=== PATIENT | male | born 1985 | race Two or more races ===

== ENCOUNTER 2019-05-17 11:19 | Inpatient (IN) | payer OTHER ==
[2019-05-17] VITALS (14 sets, daily range): BP systolic 115–155; BP diastolic 74–99
[~2019-05-17] VITALS: Ht 177.8 cm; Wt 113.4 kg
[2019-05-17] MEDS ORDERED: ETOMIDATE 2 MG/ML VIAL IV ONE ×2 (11:21→12:00)
[2019-05-17] MEDS ORDERED: SUCCINYLCHOLINE CHLORIDE 20 MG/ML VIAL IV ONE ×2 (11:21→12:00)
[2019-05-17] MEDS ORDERED: NALOXONE PREFILLED SYRINGE 2 MG/2 ML SYRINGE ONE (11:28)
[2019-05-17] MEDS ORDERED: IV NS 0.9% 1,000 ML BAG IV ONE ×2 (11:30)
[2019-05-17] MEDS ORDERED: PROPOFOL 100 ML ONE ×2 (11:33→12:49)
[2019-05-17 11:37] LABS: BASOPHILS % (AUTO) 0.1 % (0.0-2.0); EOSINOPHILS % (AUTO) 0.2 % (0.0-6.0); HEMATOCRIT 49 % (39-51); LYMPHOCYTES # (AUTO) 2.2 /CMM (0.8-4.8); LYMPHOCYTES % (AUTO) 8.6 % (20.0-44.0); MEAN CORPUSCULAR HGB CONC 33 g/dl (31.0-36.0); MEAN CORPUSCULAR VOLUME 84 fL (80-96); MONOCYTES # (AUTO) 1.2 /CMM (0.1-1.30); MONOCYTES % (AUTO) 4.7 % (2.0-12.0); NEUTROPHILS # (AUTO) 22.4 /CMM (1.8-8.9); NEUTROPHILS % (AUTO) 86.4 % (43.0-81.0); PLATELET COUNT (AUTO) 305 /CMM (150-450); RED BLOOD CELL COUNT(AUTO) 5.83 MIL/uL (4.5-6.0); WHITE BLOOD COUNT (AUTO) 25.9 K/uL (4.3-11.0)
--- NOTE | 2019-05-17 11:40 | NUR ---
DR PAPPAS AT BEDSIDE FOR INTUBATION 1140 TIME OUT 1141 20MG ETOMIDATE/150MG SUX GIVEN 1142 GLIDOSCOPE INSERTED [address], POSITIVE CO2 1144 5MCG/KG/MIN RUSTAM STARTED
[2019-05-17 11:45] LABS: CARBON DIOXIDE 22 mmol/L (21-32); CHLORIDE 104 mmol/L (98-107); CREATININE 1.5 mg/dL (0.6-1.3); GLUCOSE 165 mg/dL (74-106); POTASSIUM 3.8 mmol/L (3.5-5.1); SODIUM SERUM 141 mmol/L (136-145); UREA NITROGEN, BLOOD 9 mg/dL (7-18)
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
[2019-05-17 11:51] LABS: ACETAMINOPHEN 0 ug/ml (10-30); ALANINE AMINOTRANSFERASE 39 U/L (12-78); ALCOHOL, BLOOD < 3 mg/dL (0-0); ALKALINE PHOSPHATASE 87 U/L (46-116); ASPARTATE AMINOTRANSFERASE 67 U/L (15-37); BILIRUBIN,DIRECT 0.1 mg/dL (0.0-0.2); BILIRUBIN,TOTAL 0.4 mg/dL (0.2-1.0); SALICYLATE 5.3 mg/dL (2.8-20.0); TOTAL PROTEIN, SERUM 7.4 g/dL (6.4-8.2)
--- NOTE | 2019-05-17 11:51 | NUR ---
RECTAL TEMP 99.0 DR PAPPAS AWARE.
[2019-05-17 11:54] LABS: BILIRUBIN,URINE Negative (NEGATIVE); BLOOD, URINE Large Ery/uL (NEGATIVE); COLOR,URINE Yellow (YELLOW); KETONES,URINE Negative (NEGATIVE); LEUKOCYTE ESTERASE ,URINE Negative (NEGATIVE); NITRITE, URINE Negative (NEGATIVE); PROTEIN,URINE 100 mg/dl (NEGATIVE); UGLUCOSE Negative (NEGATIVE); UROBILINOGEN,URINE 0.2 EU/dL (0.2)
--- NOTE | 2019-05-17 11:54 | NUR ---
PT TAKEN TO RADIOLOGY VIA [facility]
[2019-05-17 11:55] LABS: APPEARANCE,URINE Hazy (CLEAR)
[2019-05-17] MEDS ORDERED: PROPOFOL 100 ML IV PRN (12:00)
[2019-05-17 12:02] LABS: BACTERIA,URINE Rare /HPF (None Seen); SQUAMOUS EPITHELIAL CELL,UR Few /HPF (None Seen); URINE AMORPHOUS PHOSPHATES Few /HPF (None Seen)
--- NOTE | 2019-05-17 12:25 | NUR ---
AND BROTHER OF PT AT BEDSIDE. PER , PT FELL FROM BED AROUND 7AM AND HAD SALIVA/FOAMING FROM THE MOUTH. PT C/O BACK PAIN AT THAT TIME. WHEN ARRIVED AT HOME, PT ASKED TO LAY ON FLOOR AND SMOKE MARIJUANA FOR PAIN RELIEF. SOON AFTER PT "WENT BLUE" SO STARTED CPR WHILE KIDS CALLED 911.
[2019-05-17] MEDS ORDERED: CEFTRIAXONE 2 G in IV D5W 50 ML IV ONE (12:30)
[2019-05-17 12:33] LABS: ABG BASE EXCESS -4.8 mmol/L; ABG OXYGEN SATURATION 96.8 % (92.0-98.5); ABG PCO2 36.8 mmHg (35.0-45.0); ABG PH 7.354 (7.350-7.450); ABG PO2 99.3 mmHg (75.0-100.0); AaDO2 215.8 mmHg; MetHb 0.5 % (0.0-1.5); O2Hb 95.3 % (94.0-97.0); PEEP,BG 5 cm H2O; SITE, ABG Left Radial; VT, ABG 550 mL
--- NOTE | 2019-05-17 12:42 | NUR ---
NANCY BENSON IN DEPT SPEAKING WITH FAMILY
[2019-05-17] MEDS ORDERED: PROPOFOL 200 MG/20 ML VIAL IV ONE (13:30)
--- NOTE | 2019-05-17 13:30 | NUR ---
DR PAPPAS AT BEDSIDE FOR LUMBAR PUNCTURE PROCEDURE
--- NOTE | 2019-05-17 14:01 | NUR ---
ICU BED 251
--- NOTE | 2019-05-17 14:28 | NUR ---
ADMIT TO ICU, REPORT GIVEN TO LES SAMPSON
--- NOTE | 2019-05-17 14:28 | NUR ---
INTRAVENOUS END TIME DOCUMENTATION: DIPRIVAN DRIP - INFUSING WHILE TRANSER TO ICU AT 60 MCS/KILO/MINUTE AT RAC PIV # 18; PORT # 1
[2019-05-17 14:47] LABS: CSF GLUCOSE 96 mg/dL (40-70); CSF PROTEIN 32.3 mg/dL (15-45)
--- NOTE | 2019-05-17 14:48 | NUR ---
[facility]
[2019-05-17] MEDS ORDERED: HYDROCODONE/APAP 5/325MG 1 EACH TABLET PO PRN (15:00)
[2019-05-17] MEDS ORDERED: ZOLPIDEM TARTRATE 5 MG TABLET PO PRN (15:00)
[2019-05-17] MEDS ORDERED: MAGNESIUM HYDROXIDE 30 ML UDC PO PRN (15:00)
--- NOTE | 2019-05-17 15:30 | NUR ---
received pt from ER, AMS, intubated for airway protection, SR, sedated on Diprivan at 100mcg, on the vent, lungs clear, no edema, f/c intact, v/s stable, no pain, restraints on, pt cleaned, changed and repositioned, family at the bedside.
[2019-05-17] MEDS: IV NS 0.9% 1,000 ML IV PRN ×2 (15:50→21:37)
[2019-05-17] MEDS: PROPOFOL 100 ML IV PRN ×5 (15:58→23:14)
--- NOTE | 2019-05-17 19:38 | NUR ---
EVENT OPERATIONS MANAGER INITIAL NOTE RECEIVED PT SEDATED ON DIPRIVAN@100MCQ, WITH E-TUBE 7.5, AC 16, TV 550, FIO2 50% PEEP 5, WITH BILAT' WRIST RESTRAIN, RENEWED, APPEARS COMFORTABLE, CLEAN AND DRY, WELL REPOSITIONED, WILL CONT' TO MONITOR.
[2019-05-18] VITALS (25 sets, daily range): BP systolic 115–164; BP diastolic 61–95
[2019-05-18] MEDS: PROPOFOL 100 ML IV PRN ×13 (00:50→22:45)
[2019-05-18] MEDS: IV NS 0.9% 1,000 ML IV PRN ×5 (02:22→22:26)
[2019-05-18 05:01] LABS: BASOPHILS % (AUTO) 0.1 % (0.0-2.0); EOSINOPHILS % (AUTO) 0.1 % (0.0-6.0); HEMATOCRIT 44 % (39-51); HEMOGLOBIN 14.6 g/dL (13.5-17.5); LYMPHOCYTES # (AUTO) 1.1 /CMM (0.8-4.8); LYMPHOCYTES % (AUTO) 7.2 % (20.0-44.0); MEAN CORPUSCULAR HGB CONC 33 g/dl (31.0-36.0); MEAN CORPUSCULAR VOLUME 83 fL (80-96); MONOCYTES # (AUTO) 1.1 /CMM (0.1-1.30); NEUTROPHILS # (AUTO) 13.4 /CMM (1.8-8.9); NEUTROPHILS % (AUTO) 85.6 % (43.0-81.0); PLATELET COUNT (AUTO) 213 /CMM (150-450); RED BLOOD CELL COUNT(AUTO) 5.28 MIL/uL (4.5-6.0); WHITE BLOOD COUNT (AUTO) 15.7 K/uL (4.3-11.0)
[2019-05-18 05:22] LABS: CREATININE 2.9 mg/dL (0.6-1.3); MAGNESIUM 2.3 mg/dL (1.8-2.4); PHOSPHORUS 2.5 mg/dL (2.5-4.9); POTASSIUM 3.8 mmol/L (3.5-5.1)
--- NOTE | 2019-05-18 06:31 | NUR ---
ENERGY TRADING ANALYST CLOSING NOTE ENDORSED PT SEDATED ON DIPRIVAN@ 65 MCQ, TITRATED STILL VERY SEDATED, WITH E-TUBE 7.5/, AC 16, TV 550, FIO2 50% PEEP 5, WITH BILAT' WRIST RESTRAIN, RENEWED, APPEARS COMFORTABLE, CLEAN AND DRY, WELL REPOSITIONED, WILL CONT' TO MONITOR.
--- NOTE | 2019-05-18 08:00 | NUR ---
received pt from night club manager, sedated on diprivan at 60mcg, SR, on the vent, lungs partially congested, no edema, NPO, OG clamped, f/c good output, v/s stable, no pain, pt turned and repositioned.
--- NOTE | 2019-05-18 09:19 | NUR ---
pt did not tolerate weaning trial, was not following commands,very agitated, tachycardic and tachypneic, back to AC mode per Dr Horton.
[2019-05-18] MEDS: CEFTRIAXONE 1 G in IV D5W 50 ML IV SCH (11:09)
[2019-05-18 12:01] LABS: APPEARANCE,URINE CLEAR (CLEAR); BILIRUBIN,URINE NEGATIVE (NEGATIVE); BLOOD, URINE NEGATIVE Ery/uL (NEGATIVE); COLOR,URINE YELLOW (YELLOW); KETONES,URINE NEGATIVE (NEGATIVE); LEUKOCYTE ESTERASE ,URINE NEGATIVE (NEGATIVE); NITRITE, URINE NEGATIVE (NEGATIVE); PROTEIN,URINE NEGATIVE (NEGATIVE); UGLUCOSE NEGATIVE (NEGATIVE); UROBILINOGEN,URINE 0.2 EU/dL (0.2)
[2019-05-18 12:18] LABS: CREATININE, URINE 62.4 MG/DL (30.0-125.0); URINE TOTAL PROTEIN 14.3 mg/dL (0-11.9)
[2019-05-18 13:03] LABS: EOSINOPHIL,URINE None Seen
--- NOTE | 2019-05-18 15:59 | NUR ---
Patient is currently in ICU, intubated and sedated. He lives at home with and children. Prior to admission, he was ambulatory and independent with adl's. His pcp is in [place]. Will maintain full ventilator support for hours and assess for weaning tomorrow per pulmonary. Addendum: 05/18/19 at 1559 by JLUIS BIRD RN Amended: Links added.
--- NOTE | 2019-05-18 16:26 | NUR ---
pt is sedated on Diprivan at 65mcg, SR, on the vent, good urine output, no BM, v/s stable, no pain, pt cleaned, changed and repositioned q2hrs, at the bedside.
[2019-05-18] MEDS: hydrALAZINE HCL IV 20 MG VIAL IV PRN (17:49)
[2019-05-18] MEDS: LORAZEPAM INJ 2 MG/ML VIAL IV PRN (18:08)
--- NOTE | 2019-05-18 19:26 | NUR ---
PLANE TENDER NOTES RECEIVED PT ON BED. SEDATED, COMFORTABLE. ET TUBE 7.03/04, ON [facility] VENT SETTING SATURATING WELL. NO RESPIRATORY DISTRESS NOTED. FLORES CATH DRAINING YELLOW URINE. IV ACCESS ON LAC G18 AND RAC G18 PATENT AND INTACT WITH NS RUNNING @ 200CC/HR AND DIP @100MCG/HR. ON BILATERAL SOFT RESTRAINS. HEAD OF BED ELEVATED. SIDE RAILS UP. CALL LIGHT WITHIN REACH. BED ALARM ON. WILL CONTINUE TO MONITOR PT CLOSELY.
[2019-05-19] VITALS (37 sets, daily range): BP systolic 122–171; BP diastolic 66–89
[2019-05-19] MEDS: LORAZEPAM INJ 2 MG/ML VIAL IV PRN ×4 (00:30→23:56)
[2019-05-19] MEDS: PROPOFOL 100 ML IV PRN ×11 (00:35→21:21)
[2019-05-19 05:08] LABS: BASOPHILS % (AUTO) 0.1 % (0.0-2.0); EOSINOPHILS % (AUTO) 0.4 % (0.0-6.0); HEMATOCRIT 44 % (39-51); HEMOGLOBIN 14.3 g/dL (13.5-17.5); LYMPHOCYTES # (AUTO) 1.6 /CMM (0.8-4.8); LYMPHOCYTES % (AUTO) 10.6 % (20.0-44.0); MEAN CORPUSCULAR HGB CONC 33 g/dl (31.0-36.0); MEAN CORPUSCULAR VOLUME 84 fL (80-96); MONOCYTES # (AUTO) 0.9 /CMM (0.1-1.30); MONOCYTES % (AUTO) 5.5 % (2.0-12.0); NEUTROPHILS % (AUTO) 83.4 % (43.0-81.0); PLATELET COUNT (AUTO) 166 /CMM (150-450); RED BLOOD CELL COUNT(AUTO) 5.24 MIL/uL (4.5-6.0); WHITE BLOOD COUNT (AUTO) 15.6 K/uL (4.3-11.0)
[2019-05-19 05:22] LABS: ALBUMIN 2.9 g/dL (3.4-5.0); BILIRUBIN,TOTAL 0.5 mg/dL (0.2-1.0); CALCIUM, SERUM 8.1 mg/dL (8.5-10.1); CREATININE 2.4 mg/dL (0.6-1.3); PHOSPHORUS 2.4 mg/dL (2.5-4.9); TOTAL PROTEIN, SERUM 6.2 g/dL (6.4-8.2)
[2019-05-19 05:54] LABS: CREATININE, URINE 133.6 MG/DL (30.0-125.0); URINE TOTAL PROTEIN 30.7 mg/dL (0-11.9)
[2019-05-19] MEDS: IV NS 0.9% 1,000 ML IV PRN ×4 (06:16→22:35)
[2019-05-19 07:13] LABS: APPEARANCE,URINE CLOUDY (CLEAR); BILIRUBIN,URINE NEGATIVE (NEGATIVE); BLOOD, URINE TRACE-INTA Ery/uL (NEGATIVE); COLOR,URINE YELLOW (YELLOW); KETONES,URINE TRACE (NEGATIVE); LEUKOCYTE ESTERASE ,URINE NEGATIVE (NEGATIVE); NITRITE, URINE NEGATIVE (NEGATIVE); PH,URINE 5.5 (5.0-8.0); PROTEIN,URINE NEGATIVE (NEGATIVE); UGLUCOSE NEGATIVE (NEGATIVE); UROBILINOGEN,URINE 0.2 EU/dL (0.2)
--- NOTE | 2019-05-19 07:14 | NUR ---
PAPER AND PRINTS RESTORER NOTES NO ACUTE CHANGES NOTED DURING THE SHIFT. NO RESPIRATORY DISTRESS NOTED. BED BATH RENDERED. PT CALM AND SEDATED THROUGHOUT THE SHIFT. ENDORSE TO THE AM NURSE FOR CONTINUITY OF CARE.
[2019-05-19 07:21] LABS: BACTERIA,URINE None seen /HPF (None Seen); SQUAMOUS EPITHELIAL CELL,UR Few /HPF (None Seen); URIC ACID CRYSTALS,URINE Moderate /HPF (None Seen); WBC,URINE NONE SEEN /HPF (0-3)
[2019-05-19 07:22] LABS: EOSINOPHIL,URINE None Seen
--- NOTE | 2019-05-19 07:30 | NUR ---
RECEIVED PT SEDATED INTUBATED ORALLY .03/04 TOLERATING VENT SETTINGS AND IWTHOUT SOB, DIFFICULTY BREATHING AND FLACC 0. SEDATED ON DIPRIVAN AND IVF PER ORDER; SEE SPREADSHEET. PATIENT WITH OGT CLAMPED; POSITIVE PLACEMENT ON AUSCULTATION. FLORES CATH TO GRAVITY WITH TEA COLORED/GREEN URINE. PATIENT IV SITES C/D/I/P. SKIN, SAFETY, ASPIRATION PRECAUTIONS IN PLACE AND WILL MONITOR
--- NOTE | 2019-05-19 07:43 | NUR ---
DR BUCK AT BEDSIDE. UPDATED ON PATIENT CONDITION AND DIFFICULTIES WITH WEANING YESTERDAY S/T SEVERE AGITATION AND NON RESPONSIVENESS TO CALMING MEASURES. PER MD START SEROQUEL 50MG THROUGH GASTRIC TUBE TWICE DAILY 0900, 1700. AND OKAY TO CHANGE ATIVAN INTRAVENOUS PUSH TO EVERY 4 HOURS PRN
[2019-05-19] MEDS: QUETIAPINE FUMARATE 25 MG TABLET GT SCH ×2 (08:20→17:15)
[2019-05-19] MEDS ORDERED: K PHOS NEUTRAL 250 MG TABLET PO ONE (10:00)
[2019-05-19] MEDS: CEFTRIAXONE 1 G in IV D5W 50 ML IV SCH (12:04)
--- NOTE | 2019-05-19 13:01 | NUR ---
PATIENT FAMILY AT BEDSIDE FOR WEANING TRIAL AND DR QUIÑONES PRESENT. PATIENT OFF SEDATION STARTED FOLLOWING COMMANDS AND MOVING ALL EXTREMITIES REQUESTED HOWEVER STARTED TO CONTINUOUSLY FIGHT VENT, BP ELEVATED TO 171 SYSTOLIC, HEART RATE INCREASED TO 102 AND UNABLE TO CALM DESPITE FAMILY PRESENCE AND CALMING REQUESTS. NOTIFIED DR QUIÑNOES AND PER MD SEDATE PATIENT UNTIL COMFORTABLE AND PLEASE CONTINUE WITH SIMV TRIAL WITH RATE 5 AND PRESSURE SUPPORT 15 AND IF PATIENT IN CONTINUED DISTRESS PLACE BACK ON AC MODE. AT THIS TIME PATIENT SEDATED AND COMFORTABLE AND TOLERATING SIMV WITH SATURATION 97%, HR NSR, AND BP STABILIZING. WILL CONTINUE TO MONITOR Addendum: 05/19/19 at 1554 by JOSE MANUEL BLACKWOOD RN RATE OF 8. AND TITRATE FIO2 FOR O2 SAT 92% AND GREATER
--- NOTE | 2019-05-19 14:00 | NUR ---
PATIENT FI02 TITRATED TO 40%. SATURATION STABLE
[2019-05-19] MEDS: ACETAMINOPHEN 325 MG TABLET PO PRN (14:37)
--- NOTE | 2019-05-19 18:50 | NUR ---
ALL DUE MEDS GIVEN AND ALL NEEDS MET. PATIENT TOLERATING SIMV PER DR QUIÑONES ORDER WITH 40% FI02 AND SATURATION 98-99%. ETT 7.5/ AND MOD CLEAR/WHITE THIN SECRETIONS NOTED THROUGHOUT DAY. PATIENT SEDATED ON DIPRIVAN; SEE SPREADSHEET AND IVF PER ORDER. PATIENT IV SITES C/D/I/P AND FLORES CATH TO GRAVITY. TEMP DECREASING WITH COOLING MEASURES AND CORE TEMP MONITORING IN PLACE. SKIN, SAFETY, ASPIRATION PRECAUTIONS IN PLACE AND MONITORED THROUGHOUT DAY.
--- NOTE | 2019-05-19 19:16 | NUR ---
CARE ENDORSED TO LES SPAULDING FOR TANA
--- NOTE | 2019-05-19 20:00 | NUR ---
RN NOTES RECEIVED BEDSIDE REPORT FROM AM RN.PATIENT IS TOLERATING SIMV PER DR QUIÑONES ORDER WITH 40% FI02 AND SATURATION 98-99%. ETT 7.5 .PATIENT SEDATED ON DIPRIVAN; SEE SPREADSHEET AND IVF PER ORDER. PATIENT IV SITES C/D/I/P AND FLORES CATH TO GRAVITY. TEMP DECREASING WITH COOLING MEASURES AND CORE TEMP MONITORING IN PLACE. SKIN, SAFETY, ASPIRATION PRECAUTIONS IN PLACE .WILL CONTINUE TO MONITOR PATIENT CLOSELY.
[2019-05-20] VITALS (35 sets, daily range): BP systolic 136–163; BP diastolic 57–98
[2019-05-20] MEDS: PROPOFOL 100 ML IV PRN ×14 (00:02→23:33)
[2019-05-20] MEDS: ACETAMINOPHEN 325 MG TABLET PO PRN ×4 (00:46→21:29)
--- NOTE | 2019-05-20 01:00 | NUR ---
RN NOTES PATIENT'S TEMP IS 100.7. TYLENOL 650MG VIA OGT HAS BEEN ADMINISTERED AND COOLING MEASURES ARE IN PLACE. PATIENT IS AGITATED AND DIPRIVAN IV HAS BEEN INCREASED FROM 60MCG/MIN TO 65 MCG/MIN. WILL CONTINUE TO MONITOR PATIENT CLOSELY.
[2019-05-20] MEDS: IV NS 0.9% 1,000 ML IV PRN ×4 (04:28→20:18)
--- NOTE | 2019-05-20 04:45 | NUR ---
RT NOTES END OF SHIFT. RECEIVED PT ON MECHANICAL VENT WITH 7.5 ETT PROPERLY SECURED AT 26 CM SHIRLEY. VENT/ ALARMS WELL FUNCTIONING WITH AMBU BAG PLACED AT BEDSIDE. B/S CLEAR DIMINISHED BILATERALLY WITH EVEN CHEST RISE. SX Q2 HOUR + PRN MOD THICK YELLOW SECRETIONS. NO SOB OR DISTRESS NOTED ALL SHIFT. HME CHANGED PER PROTOCOL. NO CHANGES NOTED IN PT STATUS.
[2019-05-20] MEDS: LORAZEPAM INJ 2 MG/ML VIAL IV PRN ×3 (06:12→23:34)
--- NOTE | 2019-05-20 06:30 | NUR ---
rn notes Patient is very agitated and anxious , Ativan ivp 1mg has been administered which didn't help to calm the patient. Diprivan iv has been increased from 65mcg/min to 70mcg/min. will continue to monitor patient.
[2019-05-20] MEDS: hydrALAZINE HCL IV 20 MG VIAL IV PRN (06:39)
--- NOTE | 2019-05-20 06:45 | NUR ---
rn notes Patient is still agitated , fighting the vent, B?P 181/92 HR-87 . Hydralazine 10mg IVP has been administered and Diprivan iv has been increased from 70mcg/min to 75mcg/min. will continue to monitor patient closely.
--- NOTE | 2019-05-20 07:00 | NUR ---
RN NOTES ALL DUE MEDS GIVEN AND ALL NEEDS MET. PATIENT IS ON VENT SUPPORT WITH 50% FI02 AND SATURATION 98%. ETT 7.5/26 AND MOD CLEAR/WHITE THIN SECRETIONS NOTED THROUGHOUT DAY. PATIENT SEDATED ON DIPRIVAN; SEE SPREADSHEET AND IVF PER ORDER. PATIENT IV SITES C/D/I/P AND FLORES CATH DRAINING TO GRAVITY. TEMP DECREASING WITH COOLING MEASURES AND CORE TEMP MONITORING IN PLACE. SKIN, SAFETY, ASPIRATION PRECAUTIONS IN PLACE AND MONITORED THROUGHOUT THE DAY. SHIFT REPORT IS GIVEN TO LES GABRIEL FOR DIMENSIONAL ENGINEER.
--- NOTE | 2019-05-20 07:10 | NUR ---
RN NOTES RECEIVED PT ON BED, INTUBATED AND SEDATED, TOLERATING CURRENT VENT SETTING WELL, ON AC MODE, O2 SAT96%, ORAL AND ET TUBE SUCTIONING DONE, ON PROPOFOL AT 75MCG/KG/ MIN AT THIS TIME, L AC AND R AC IV SITE G 18 CLEAN, DRY AND INTACT, NS AT 200CC/HR RUNNING , FLORES DRINING TO GRAVITY, SR UP x3, BED LOCKED AND IN LOWEST POSITION, CONTINUE TO MONITOR .
--- NOTE | 2019-05-20 07:39 | NUR ---
RN NOTES B/P RECHECKED 154/57 HR104.
[2019-05-20] MEDS: QUETIAPINE FUMARATE 25 MG TABLET GT SCH ×2 (08:00→16:02)
[2019-05-20 08:25] LABS: ABG BASE EXCESS -4.8 mmol/L; ABG OXYGEN SATURATION 96.3 % (92.0-98.5); ABG PCO2 36.3 mmHg (35.0-45.0); ABG PH 7.359 (7.350-7.450); ABG PO2 84.9 mmHg (75.0-100.0); AaDO2 230.8 mmHg; COHb 0.6 % (0.5-1.5); O2Hb 94.8 % (94.0-97.0); SITE, ABG Right Radial
[2019-05-20 08:27] LABS: BASOPHILS % (AUTO) 0.3 % (0.0-2.0); EOSINOPHILS % (AUTO) 1.1 % (0.0-6.0); HEMATOCRIT 40 % (39-51); HEMOGLOBIN 13.2 g/dL (13.5-17.5); LYMPHOCYTES # (AUTO) 1.1 /CMM (0.8-4.8); LYMPHOCYTES % (AUTO) 10.1 % (20.0-44.0); MEAN CORPUSCULAR HGB CONC 33 g/dl (31.0-36.0); MEAN CORPUSCULAR VOLUME 83 fL (80-96); MONOCYTES # (AUTO) 0.5 /CMM (0.1-1.30); NEUTROPHILS # (AUTO) 9.2 /CMM (1.8-8.9); NEUTROPHILS % (AUTO) 83.5 % (43.0-81.0); PLATELET COUNT (AUTO) 153 /CMM (150-450); RED BLOOD CELL COUNT(AUTO) 4.77 MIL/uL (4.5-6.0)
[2019-05-20 08:39] LABS: ALBUMIN 2.5 g/dL (3.4-5.0); BILIRUBIN,TOTAL 0.4 mg/dL (0.2-1.0); CALCIUM, SERUM 7.8 mg/dL (8.5-10.1); CREATININE 1.4 mg/dL (0.6-1.3); TOTAL PROTEIN, SERUM 5.9 g/dL (6.4-8.2)
--- NOTE | 2019-05-20 10:00 | NUR ---
RN NOTES PT'S BROTHER REQUESTING TO SPEAK WITH DR QUIÑONES,. NOTIFED .
--- NOTE | 2019-05-20 10:45 | NUR ---
RN NOTES O2 SAT 100%, VSS STABLE, T=98.9. SUPPORTIVE FAMILY AT THE BEDSIDE, CONTINUE TO MONITOR.
[2019-05-20] MEDS: CEFTRIAXONE 1 G in IV D5W 50 ML IV SCH (11:08)
--- NOTE | 2019-05-20 16:43 | NUR ---
RN NOTES T=101.1, DR. FLORES NOTIFED, COOLING MEASURES APPLIED , CONTINUE TO MONITOR .
--- NOTE | 2019-05-20 17:15 | NUR ---
RN NOTES KRISH SAP BW BI DEVELOPER NOTIFED REGARDING T=101, NEW ORDER RECEIVED . CONTINUE TO MONITOR .
[2019-05-20] MEDS ORDERED: PIPERACILLIN /TAZOBACTAM 3.375 G in IV D5W 50 ML IV ONE (18:00)
--- NOTE | 2019-05-20 18:30 | NUR ---
RN NOTES T=100.9 AT THIS TIME, FAMILY AT THE BEDSIDE, TOLERATING VENT SETTING WELL, PROPOFOL AT 75 MCG/KG/MIN RUNNING . PT IS SEDATED, SR UP x3, NO SIGNIFICANT CHANGES NOTED ON THIS SHIFT, WILL ENDORSE TO STRIKE PLATE ATTACHER NURSE FOR CONTINUITY OF CARE.
--- NOTE | 2019-05-20 18:45 | NUR ---
RN PT RECEIVED FROM AM SHIFT, PT INTUBATED, PROPOFOL DRIP RUNNING @75, PT SEDATED, F/C IN PLACE DRAINING URINE GREENISH IN COLOR, OGT WITH POSITIVE PLACEMENT, ELEVATED TEMP 100.1, COOLING MEASURES PROVIDED. FAMILY AT BEDSITE. PT TOLERATING VENT SETTINGS ORDERED.
--- NOTE | 2019-05-20 20:00 | NUR ---
RN OGT RESIDUALS NOTED 185 ML . WILL CONTINUE TO MONITOR
[2019-05-20] MEDS: PIPERACILLIN /TAZOBACTAM 3.375 G in IV D5W 100 ML IV SCH (23:33)
[2019-05-21] VITALS (35 sets, daily range): BP systolic 128–175; BP diastolic 68–96
[2019-05-21] MEDS: PROPOFOL 100 ML IV PRN ×12 (00:56→22:30)
[2019-05-21] MEDS: IV NS 0.9% 1,000 ML IV PRN ×5 (01:36→22:28)
[2019-05-21 04:30] LABS: BASOPHILS % (AUTO) 0.4 % (0.0-2.0); EOSINOPHILS % (AUTO) 0.7 % (0.0-6.0); HEMATOCRIT 39 % (39-51); HEMOGLOBIN 13.2 g/dL (13.5-17.5); LYMPHOCYTES # (AUTO) 1.6 /CMM (0.8-4.8); LYMPHOCYTES % (AUTO) 14.6 % (20.0-44.0); MEAN CORPUSCULAR HGB CONC 34 g/dl (31.0-36.0); MEAN CORPUSCULAR VOLUME 83 fL (80-96); MONOCYTES # (AUTO) 0.7 /CMM (0.1-1.30); MONOCYTES % (AUTO) 6.5 % (2.0-12.0); NEUTROPHILS # (AUTO) 8.7 /CMM (1.8-8.9); NEUTROPHILS % (AUTO) 77.8 % (43.0-81.0); PLATELET COUNT (AUTO) 168 /CMM (150-450); RED BLOOD CELL COUNT(AUTO) 4.71 MIL/uL (4.5-6.0); WHITE BLOOD COUNT (AUTO) 11.2 K/uL (4.3-11.0)
[2019-05-21 04:38] LABS: CALCIUM, SERUM 7.8 mg/dL (8.5-10.1); CREATININE 1.2 mg/dL (0.6-1.3); MAGNESIUM 1.5 mg/dL (1.8-2.4); PHOSPHORUS 3.9 mg/dL (2.5-4.9); POTASSIUM 3.9 mmol/L (3.5-5.1)
[2019-05-21] MEDS: LORAZEPAM INJ 2 MG/ML VIAL IV PRN ×2 (05:10→16:54)
[2019-05-21] MEDS: ACETAMINOPHEN 325 MG TABLET PO PRN ×3 (05:10→17:35)
--- NOTE | 2019-05-21 06:29 | NUR ---
RN PT SEDATED, PROPOFOL DRIP @65, PT TOLERATING VENT WELL, OGT IN PLACE, RESTRAINTS ON ORDERED, NO S/S OF ADVERSE REACTIONS NOTED. TEMP 99.1 AT THIS TIME, TYLENOL ADMIN ORDERED. WILL CONTINUE TO MONITOR
--- NOTE | 2019-05-21 07:00 | NUR ---
RN NOTES RECEIVED PT ON BED, INTUBATED, SEDATED, ON PROPOFOL AT 65 MCG/KG/MIN , TOLEIANG CURRENT VENT SETTING WELL, O2 SAT 98%, ON DISTRESS NOTED, ON TELE SR HR IN 70'S , NS AT 200CC/HR RUNNING VIA R AC IV SITE G 18 , SITE CLEAN, DRY AND INTACT, FLORES DRINING TO GRAVITY, SR UP x3, CALL LIGHT WITHIN EASY REACH, BED LOCKED AND IN LOWEST POSITION,CONTINUE TO MONITOR .
[2019-05-21] MEDS: PIPERACILLIN /TAZOBACTAM 3.375 G in IV D5W 100 ML IV SCH ×2 (07:54→15:30)
[2019-05-21] MEDS: QUETIAPINE FUMARATE 25 MG TABLET GT SCH ×2 (08:02→16:37)
[2019-05-21] MEDS: Magnesium 1GM/D5W 100ML PREMIX 100 ML IV SCH ×2 (10:33→11:24)
--- NOTE | 2019-05-21 15:01 | NUR ---
RT WEANING TRIAL STARTED PER DR. RADHA GUTIERREZ, FAMILY BY BEDSIDE. Addendum: 05/21/19 at 1511 by LOS JOSÉ RT Amended: Links added.
[2019-05-21 15:29] LABS: ABG BASE EXCESS -3.7 mmol/L; ABG OXYGEN SATURATION 95.2 % (92.0-98.5); ABG PCO2 35.2 mmHg (35.0-45.0); ABG PH 7.385 (7.350-7.450); ABG PO2 77.5 mmHg (75.0-100.0); AaDO2 167.2 mmHg; COHb 0.3 % (0.5-1.5); MetHb 0.7 % (0.0-1.5); O2Hb 94.2 % (94.0-97.0); PEEP,BG 5 cm H2O; SITE, ABG Right Radial; VENT MODE, BG SIMV 4 / PS 15; VT, ABG 550 mL
--- NOTE | 2019-05-21 15:40 | NUR ---
RN NOTES DR GARCIA AT THE BEDSIDE , PT UNABLE TO TOLERATE WEANING, PT IS HYPERTENSIVE AND TACHYPNEIC ,ANXIOUS AND RESTLESS , FAMILY AT THE BEDSIDE, PT BACK ON SEDATION AND PLACED BACK ON AC MODE PER DR. GARCIA ORDER.
--- NOTE | 2019-05-21 15:40 | NUR ---
RT Pt unable to tolerate weaning, pt became tachypnic with increased WOB. Pt was seen by Dr. Horton, pt placed back on AC mode. Addendum: 05/21/19 at 1545 by LOS JOSÉ RT Amended: Links added.
[2019-05-21 18:10] LABS: *SPE A/G RATIO 1.3 (0.7-1.7); *SPE ALBUMIN 3.1 g/dL (2.9-4.4); *SPE ALPHA-1-GLOBULIN 0.4 g/dL (0.0-0.4); *SPE ALPHA-2-GLOBULIN 0.5 g/dL (0.4-1.0); *SPE BETA GLOBULIN 0.8 g/dL (0.7-1.3); *SPE GLOBULIN, TOTAL 2.4 g/dL (2.2-3.9); *SPE M-SPIKE Not Observed g/dL (Not Observed); *SPEGAMMA GLOBULIN 0.7 g/dL (0.4-1.8)
--- NOTE | 2019-05-21 18:26 | NUR ---
RN NOTES ORAL AND ET TUBE SUCTIONING DONE, O2 SAT 98%, PROPOFOL AT 90 MCG/KG/ MIN RUNNING VIA L AC IV SITE ,PT RESTLESS AT TIMES , NS AT 200CC/HR RUNNING VIA R AC IV SITE G 18, SITE CLEAN, DRY AND INTACT, WILL ENDORSE TO SECURITY INCIDENT RESPONSE SPECIALIST NURSE FOR CONTINUITY OF CARE .
--- NOTE | 2019-05-21 18:50 | NUR ---
RN NOTES T=101.5, NERA CLAIM MANAGER NOTIFED, COOLING BLANKET APPLIED, NO NEW ORDER GIVEN , REPORT GIVEN TO EZEQUIEL RN FOR CONTINUITY OF CARE.
--- NOTE | 2019-05-21 19:30 | NUR ---
DIET THERAPIST NOTES RECEIVED PATIENT IN BED, SEDATED ON DIPRIVAN. PATIENT ORALLY INTUBATED, ON MECHANICAL VENTILATION, SETTINGS: AC 16, TV 550, FIO2 40%, PEEP 5. TOLERATING VENT SETTING SWELL, NO S/S OF RESPIRATORY DISTRESS. BEDSIDE CUFF FOLDER SHOWING SINUS TACHYCARDIA, HR 114 BPM. PATIENT NOTED WITH RECTAL TEMPERATURE OF 101.5. COOLING BLANKET APPLIED, ELECTRIC FAN FACING PATIENT, ICE PACKS APPLIED TO BILATERAL AXILLA, TYLENOL ALREADY ADMINISTERED. BILATERAL SOFT WRIST RESTRAINTS IN PLACE FOR SAFETY DUE TO SELF EXTUBATION RISK. LEFT AND RIGHT AC IVs PATENT AND INTACT, FREE FROM ANY S/S OF INFILTRATION OR PHLEBITIS FLUSHED WITH NS. ONGOING IV FLUIDS OF NS @ 200ML/HR, WELL DIPRIVAN DRIP, CURRENTLY AT 90 MCG/KG/MIN. FLORES CATHETER PATENT AND INTACT, DRAINING CLOUDY GREEN/YELLOW URINE VIA GRAVITY. CALL LIGHT LEFT WITHIN EASY REACH, BED IN LOWEST AND LOCKED POSITION. WILL CONTINUE TO CLOSELY MONITOR THE PATIENT
[2019-05-22] VITALS (23 sets, daily range): BP systolic 116–153; BP diastolic 52–95
[2019-05-22] MEDS: PROPOFOL 100 ML IV PRN ×5 (00:21→06:54)
[2019-05-22] MEDS: PIPERACILLIN /TAZOBACTAM 3.375 G in IV D5W 100 ML IV SCH ×3 (00:25→16:38)
[2019-05-22] MEDS: ACETAMINOPHEN 325 MG TABLET PO PRN ×2 (00:25→16:48)
[2019-05-22] MEDS: LORAZEPAM INJ 2 MG/ML VIAL IV PRN (00:28)
[2019-05-22] MEDS: Z GUARD REMEDY 2 OZ OINT TP PRN ×2 (03:26→16:42)
[2019-05-22 04:49] LABS: CALCIUM, SERUM 8.1 mg/dL (8.5-10.1); MAGNESIUM 1.6 mg/dL (1.8-2.4); POTASSIUM 3.8 mmol/L (3.5-5.1)
[2019-05-22] MEDS: IV NS 0.9% 1,000 ML IV PRN ×4 (05:11→18:47)
--- NOTE | 2019-05-22 06:00 | NUR ---
LONG TERM CARE ADMINISTRATOR NOTES COOLING BLANKET TURNED OFF, RECTAL TEMPERATURE 98.6. WILL CONTINUE TO CLOSELY MONITOR
--- NOTE | 2019-05-22 07:00 | NUR ---
APPRENTICE MACHINIST OUTSIDE NOTES PATIENT ENDORSED TO DAY SHIFT NURSE FOR CONTINUITY OF CARE. PATIENT REMAINS ORALLY INTUBATED, ON MECHANICAL VENT SETTINGS ORDERED, TOLERATED WELL THROUGHOUT SHIFT, NO EPISODES OF DESATURATION OR RESPIRATORY DISTRESS NOTED. PATIENT [id number] ON DIPRIVAN DRIP, TITRATED DOWN TO 80 MCG/KG/MIN.
[2019-05-22] MEDS: QUETIAPINE FUMARATE 25 MG TABLET GT SCH (07:33)
[2019-05-22 07:56] LABS: BASOPHILS % (AUTO) 0.2 % (0.0-2.0); EOSINOPHILS % (AUTO) 1.1 % (0.0-6.0); HEMATOCRIT 37 % (39-51); HEMOGLOBIN 12.3 g/dL (13.5-17.5); LYMPHOCYTES # (AUTO) 1.7 /CMM (0.8-4.8); LYMPHOCYTES % (AUTO) 17.4 % (20.0-44.0); MEAN CORPUSCULAR HGB CONC 33 g/dl (31.0-36.0); MEAN CORPUSCULAR VOLUME 83 fL (80-96); MONOCYTES # (AUTO) 0.7 /CMM (0.1-1.30); MONOCYTES % (AUTO) 6.6 % (2.0-12.0); NEUTROPHILS # (AUTO) 7.3 /CMM (1.8-8.9); NEUTROPHILS % (AUTO) 74.7 % (43.0-81.0); PLATELET COUNT (AUTO) 177 /CMM (150-450); RED BLOOD CELL COUNT(AUTO) 4.51 MIL/uL (4.5-6.0); WHITE BLOOD COUNT (AUTO) 9.8 K/uL (4.3-11.0)
[2019-05-22] MEDS ORDERED: DC PROPOFOL WHEN EXTUBATED XX PRN (08:00)
[2019-05-22] MEDS: Magnesium 1GM/D5W 100ML PREMIX 100 ML IV SCH ×2 (09:42→11:06)
[2019-05-22 10:13] LABS: ABG BASE EXCESS -2.9 mmol/L; ABG OXYGEN SATURATION 96.5 % (92.0-98.5); ABG PCO2 30.5 mmHg (35.0-45.0); ABG PH 7.439 (7.350-7.450); ABG PO2 82.9 mmHg (75.0-100.0); AaDO2 167.2 mmHg; COHb 0.5 % (0.5-1.5); MetHb 0.6 % (0.0-1.5); O2Hb 95.4 % (94.0-97.0); PEEP,BG 5 cm H2O; SITE, ABG Left Radial; VT, ABG 550 mL
--- NOTE | 2019-05-22 10:17 | NUR ---
Initial DISPOSAL PLANT OPERATOR note Received pt sedated on propofol, intubated 7.5 at lip, SR on monitor, vital signs stable, OG-tube placement verified by aspiration of gastric contents, srivastava catheter draining green colored urine, propofol titrated down for SBT today. Pt off sedation around 0830 remained calm, vital signs stable, pt able to follow simple commands such as squeezing with bilateral hands, moving toes, and opening/closing eyes, sticking tongue out. pt's family at bedside. pt has been oriented to place, situation, time and need for tube in mouth. Pt nodding in acknowledgement. White coating observed in tongue, painful upon doing mouth care, Dr. Harmon aware. IVF rate decreased by Dr. Horton due to lung congestion. Will continue to monitor pt for safety and comfort, tolerating SIMV mode at this time, pt remains calm. 1017 ABG drawn will extubate per Dr. Horton's recommendation, pt's family aware.
[2019-05-22] MEDS ORDERED: HYDROCODONE/APAP 5/325MG 1 EACH TABLET PO PRN (10:30)
--- NOTE | 2019-05-22 12:41 | NUR ---
REFINING ENGINEER note Pt extubated around 1025 on 4 L via nasal cannula, vital signs remain stable, pt sleepy but following commands, large, dark green liquid bowel movement obtained. Bedside swallow evaluation done pt observed with frequent coughing in between ice, and water. Speech therapist consult requested. Will continue to monitor pt. Pt's family at bedside.
[2019-05-22] MEDS: NYSTATIN (PYXIS) 500,000 UNIT/5 ML ORAL.SUSP PO SCH ×3 (12:56→22:47)
[2019-05-22 15:07] LABS: PTH, INTACT 79 pg/mL (15-65)
--- NOTE | 2019-05-22 18:21 | NUR ---
RT END OF THE SHIFT REPORT, @ 0700 PT 33 Y OLD MALE REC. ORALLY INTUBATED ETT#7.5 @ 25 CM LIPLINE ON VENT WITH NOTED SETTINGS, PT AWAKE RESPONSIVE, B/S BILATERALLY RALES AND SUX'S MINIMAL AMT. YELLOW THICK SECRETIONS. EQUAL CHEST RISE NOTED HME CHANGED, @0910 SIMV WEANING STARTED PER DR. GARCIA ORDER @ 1025 POST ABG PT, EXTUBATED PER DR. GARCIA ORDER PLACED ON 4 L/MIN N/C O2 PT. STABLE NO STRIDOR NOTED PT. REMAIN STABLE AND FAMILY MEMBERS AT THE BEDSIDE. AMBU BAG THE BEDSIDE,. WILL CONTINUE TO MONITOR. REPORT WILL PASS TO PM SHIFT. Addendum: 05/22/19 at 1823 by KATE GONZALEZ RT Amended: Links added.
--- NOTE | 2019-05-22 18:43 | NUR ---
CATERING TRUCK DRIVER note pt remains stable, SR on monitor, tolerating o2 via nasal cannula still at 4 L. Perez draining green colored urine, iv sites c/d/i/patent, no s/o distress/pain observed or reported. pt's voice appears more clear, tolerating ice chips. Pt's family instructed to allow pt to have ice chips only not liquids or food pending swallow evaluation tomorrow. Pt's temp trending up 100.5 despite cooling measures and tylenol given, will start cooling blanket. Pt's care will be endorsed to warehouse supervisor 3rd shift RN for continuity of care, bed in low and locked position, call light within reach, head of bed elevated.
--- NOTE | 2019-05-22 19:30 | NUR ---
BUSINESS SERVICES VICE PRESIDENT NOTE RECEIVED PT A/O X2 AND LETHARGIC WITH FAMILY AT BEDSIDE. ON 4L OF O2 VIA NC AND SATURATING WELL. HOB ELEVATED AND ASPIRATION PRECAUTIONS. BREATHING REGULAR AND UNLABORED. TELE- SR. NOTED FEBRILE AT 100.[address] COOL[address] MEASURES IN PLACE. IV CLEAN AND DRY WITH FLUIDS INFUSING. FLORES CATHETER IN PLACE AND DRAINING BY GRAVITY. CALL LIGHT WITHIN REACH. WILL MONITOR.
[2019-05-23] VITALS (13 sets, daily range): BP systolic 131–166; BP diastolic 65–92
[2019-05-23] MEDS: PIPERACILLIN /TAZOBACTAM 3.375 G in IV D5W 100 ML IV SCH ×4 (00:09→23:17)
[2019-05-23] MEDS: hydrALAZINE HCL IV 20 MG VIAL IV PRN (03:03)
[2019-05-23] MEDS: ACETAMINOPHEN 325 MG TABLET PO PRN (03:04)
[2019-05-23 04:36] LABS: BASOPHILS % (AUTO) 0.2 % (0.0-2.0); EOSINOPHILS % (AUTO) 0.3 % (0.0-6.0); HEMATOCRIT 35 % (39-51); HEMOGLOBIN 11.8 g/dL (13.5-17.5); LYMPHOCYTES # (AUTO) 1.5 /CMM (0.8-4.8); LYMPHOCYTES % (AUTO) 12.3 % (20.0-44.0); MEAN CORPUSCULAR HGB CONC 34 g/dl (31.0-36.0); MEAN CORPUSCULAR VOLUME 83 fL (80-96); MONOCYTES # (AUTO) 0.6 /CMM (0.1-1.30); MONOCYTES % (AUTO) 4.9 % (2.0-12.0); NEUTROPHILS # (AUTO) 9.8 /CMM (1.8-8.9); NEUTROPHILS % (AUTO) 82.3 % (43.0-81.0); PLATELET COUNT (AUTO) 210 /CMM (150-450); RED BLOOD CELL COUNT(AUTO) 4.23 MIL/uL (4.5-6.0); WHITE BLOOD COUNT (AUTO) 11.9 K/uL (4.3-11.0)
[2019-05-23 04:43] LABS: CALCIUM, SERUM 8.7 mg/dL (8.5-10.1); CREATININE 0.9 mg/dL (0.6-1.3); MAGNESIUM 1.7 mg/dL (1.8-2.4); POTASSIUM 3.9 mmol/L (3.5-5.1)
[2019-05-23] MEDS: IV NS 0.9% 1,000 ML IV PRN (05:34)
--- NOTE | 2019-05-23 07:30 | NUR ---
ELECTRICAL ENGINEERING DESIGNER INITIAL NOTE RECEIVED PATIENT AWAKE, A/OX4, ABLE TO MAKE NEEDS KNOWN. DENIES PAIN OR DISCOMFORT. DENIES SOB. NO RESPIRATORY DISTRESS NOTED. ON NC. SKIN WARM AND DRY TO TOUCH. ON MONITOR SR WITH PAC. F/C PATENT, INTACT, DRAINING BY GRAVITY. ANXIOUS TO GO HOME. STATES HE FEELS BETTER. SIDE RAILS UP AND LOCKED. BED KEPT AT LOWEST POSITION. CALL LIGHT KEPT WITHIN EASY REACH. WILL CONTINUE TO MONITOR.
--- NOTE | 2019-05-23 07:44 | NUR ---
WINCH RUNNER NOTE PT REMAINED STABLE DURING SHIFT. NO ACUTE DISTRESS NOTED. ALL NEEDS ATTENDED TO PROMPTLY. KEPT CLEAN AND DRY. REPOSITIONED Q2H. AFEBRILE THIS AM 99.4 RECTAL. WILL ENDORSE TO NEXT SHIFT FOR CONTINUITY OF CARE.
[2019-05-23] MEDS: NYSTATIN (PYXIS) 500,000 UNIT/5 ML ORAL.SUSP PO SCH ×4 (08:29→21:22)
--- NOTE | 2019-05-23 08:46 | NUR ---
MONORAIL OPERATOR NOTE PATIENT VERBALIZED HE'S ALLERGIC TO NOR[place], STATES HIS TEMPERATURE "SHOOTS UP" WHEN TAKING THE MEDICATION. DENIES HIVES. DENIES SOB.
--- NOTE | 2019-05-23 09:00 | NUR ---
GATEHOUSE ATTENDANT NOTE SEEN AND EXAMINED BY DR. GARCIA. WITH ORDERS TO TRANSFER TO MED SURG AND FOR PT/ST EVAL. INFORMED ORDER ALREADY IN PLACE.
--- NOTE | 2019-05-23 09:40 | NUR ---
WAREHOUSE OPERATIONS MANAGER NOTE SEEN AND EXAMINED BY DR. RODRIGUEZ
--- NOTE | 2019-05-23 09:40 | NUR ---
PSYCHOLOGY PROFESSOR NOTE SEEN AND EXAMINED BY GILMAR PACE FOR REGULAR SOFT DIET AND THIN LIQUIDS
--- NOTE | 2019-05-23 10:03 | NUR ---
PC MAINTENANCE TECHNICIAN NOTE PHYSICAL THERAPY AT BEDSIDE
--- NOTE | 2019-05-23 10:05 | NUR ---
FEDERAL DISTRICT LAW CLERK NOTE SEEN BY PT STOOD AT BEDSIDE, UNSTABLE TO WALK AT THIS TIME.
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
--- NOTE | 2019-05-23 10:49 | NUR ---
VEHICLE SERVICE AGENT NOTE PATIENT TRANSFERRED VIA BED, IN STABLE CONDITION. REPORT GIVEN TO VIVIAN NURSE QUIGLEY. FAMILY AT BEDSIDE. PATIENT WITH NO BELONGINGS, PER SHE TOOK ALL BELONGINGS HOME.
[2019-05-23] MEDS: Magnesium 1GM/D5W 100ML PREMIX 100 ML IV SCH ×2 (11:07→12:19)
[2019-05-23] MEDS ORDERED: MAG HYDROX/AL HYDROX/SIMETH 30 ML UDC PO PRN (19:00)
--- NOTE | 2019-05-23 19:00 | NUR ---
RN CLOSING NOTES PATIENT HAS BEEN ENDORSED TO PM NURSE. PATIENT IS RESTING IN BED COMFORTABLY. HE IS AOX3, DOES NO SHOW ANY S/SX OF DISTRESS, PAIN, OR SOB. THOUGHT PROCESS IS INTACT. FAMILY AT BEDSIDE. SAFETY MEASURE HAVE BEEN IMPLEMENTED, CALL LIGHT WITHIN REACH, BED IN LOWEST AND LOCKED POSITION, SIDE RAILS UP X2.
[2019-05-23] MEDS: ONDANSETRON HCL/PF 4 MG/2 ML VIAL IVP PRN ×2 (19:22→23:31)
--- NOTE | 2019-05-23 19:36 | NUR ---
RN MS OPENING NOTE RECEIVED PT IN BED, AWAKE ALERT ORIENTED X4, BREATHING EVEN AND UNLABORED ON 4L O2 VIA NC. FAMILY AT BEDSIDE, NO COMPLAINT OF PAIN OR DISCOMFORT AT THE MOMENT. IV ACCESS ON THE L AND R AC INTACT AND FLUSHING WITH NS 75ML.HR. F/C IN PLACE AND COLLECTING. BED IN LOWEST LOCKED POSITION, CALL LIGHT WITHIN REACH AT ALL TIMES, WILL CONTINUE TO MONITOR FREQUENTLY
[2019-05-23] MEDS: LORAZEPAM INJ 2 MG/ML VIAL IV PRN (23:18)
--- NOTE | 2019-05-23 23:32 | NUR ---
X2 EPISODES OF EMESIS, ZOFRAN GIVEN, WILL CONTINUE TO MONITOR
[2019-05-24 00:15] VITALS: BP 145/82
[2019-05-24] MEDS: NYSTATIN (PYXIS) 500,000 UNIT/5 ML ORAL.SUSP PO SCH ×5 (05:08→20:51)
--- NOTE | 2019-05-24 06:06 | NUR ---
RN MS CLOSING NOTE PT REMAINS IN BED, SLEEPING EASILY AROUSED TO NAME CALL. BREATHING EVEN AND UNLABORED ON 4L O2 VIA NC. AND BROTHER AT BEDSIDE, NO COMPLAINT OF PAIN OR DISCOMFORT AT THE MOMENT. IV ACCESS ON THE L AND R AC INTACT AND FLUSHING WITH NS 75ML.HR. F/C IN PLACE AND COLLECTING. BED IN LOWEST LOCKED POSITION, CALL LIGHT WITHIN REACH AT ALL TIMES, WILL ENDORSE TO DAY NURSE FOR TANA
[2019-05-24] MEDS: LORAZEPAM INJ 2 MG/ML VIAL IV PRN ×3 (07:17→23:31)
[2019-05-24 08:00] VITALS: BP 156/89
[2019-05-24] MEDS: PIPERACILLIN /TAZOBACTAM 3.375 G in IV D5W 100 ML IV SCH ×2 (08:04→18:11)
[2019-05-24] MEDS: ONDANSETRON HCL/PF 4 MG/2 ML VIAL IVP PRN ×2 (08:53→20:51)
--- NOTE | 2019-05-24 10:00 | NUR ---
MS/RN NOTE THE PATIENT NAUSEOUS AND VOMITED DARK LARGE ABOUT 100 ML DARK YELLOW. ZOFRAN IV GIVEN AND DR RODRIGUEZ IS MADE AWARE.
--- NOTE | 2019-05-24 10:16 | NUR ---
MS/RN NOTE THE PATIENT IS SEEN BY DR GARCIA WITH NEW ORDER OF PSYCH CONSULT AND TO DISCONTINUE FLORES CATH ORDERS ARE READ BACK, VERIFIED. NOTED AND CARRIED OUT.
[2019-05-24 10:48] LABS: BASOPHILS % (AUTO) 0.2 % (0.0-2.0); EOSINOPHILS % (AUTO) 0.3 % (0.0-6.0); HEMATOCRIT 36 % (39-51); HEMOGLOBIN 11.9 g/dL (13.5-17.5); LYMPHOCYTES # (AUTO) 1.5 /CMM (0.8-4.8); LYMPHOCYTES % (AUTO) 11.1 % (20.0-44.0); MEAN CORPUSCULAR HGB CONC 33 g/dl (31.0-36.0); MEAN CORPUSCULAR VOLUME 82 fL (80-96); MONOCYTES # (AUTO) 0.8 /CMM (0.1-1.30); MONOCYTES % (AUTO) 6.2 % (2.0-12.0); NEUTROPHILS # (AUTO) 11.2 /CMM (1.8-8.9); NEUTROPHILS % (AUTO) 82.2 % (43.0-81.0); PLATELET COUNT (AUTO) 248 /CMM (150-450); RED BLOOD CELL COUNT(AUTO) 4.33 MIL/uL (4.5-6.0); WHITE BLOOD COUNT (AUTO) 13.6 K/uL (4.3-11.0)
[2019-05-24 10:56] LABS: CALCIUM, SERUM 8.8 mg/dL (8.5-10.1); CREATININE 0.9 mg/dL (0.6-1.3); POTASSIUM 3.4 mmol/L (3.5-5.1)
[2019-05-24] MEDS ORDERED: QUETIAPINE FUMARATE 25 MG TABLET PO PRN (11:30)
[2019-05-24] MEDS ORDERED: POTASSIUM CHLORIDE 20 MEQ POWDER PACKET PO SCH (12:00)
--- NOTE | 2019-05-24 13:00 | NUR ---
MS/RN NOTE DR GARCIA IS MADE AWARE THAT THE PATIENT REFUSED CHEST XRAY AND ABG TODAY MORNING.
[2019-05-24 16:00] VITALS: BP 140/72
--- NOTE | 2019-05-24 19:25 | NUR ---
MS/RN NOTE PATIENT IN BED, A/O X 4. NO S/S OF ACUTE DISTRESS NOTED, RESPIRATION EVEN AND UNLABORED. NO SOB NOTED, DENIES ANY PAIN AT THIS TIME. PATIENT ON O2 AT 3LPM/MIN VIA NASAL CANNULA AND SATURATION IS AT 98%. LAC AND RAC BOTH G 18, PATENT AND IV FLUIDS AND ANTIBIOTIC INFUSING PER ORDER. NO S/S INFILTRATION NOTED. SAFETY MAINTAINED, BED AT THE LOWEST AND LOCKED POSITION. SIDE RAILS UP X3. CALL LIGHT WITHIN REACH. WILL ENDORSE TO AM SHIFT NURSE FOR TANA.
--- NOTE | 2019-05-24 19:40 | NUR ---
MS/RN NOTE THE PATIENT ALERT AND ORIENTED X4. RECEIVING OXYGEN AT 3L/MIN VIA NASAL CANNULA AND SATURATION IS AT 98%. DENIES SOB. RESPIRATION REGULAR AND UNLABORED. DENIES PAIN. THE PATIENT IN NO APPARENT DISTRESS. LAC AND RAC BOTH G 18 PATENT AND IV FLUIDS AND ANTIBIOTIC INFUSING PER ORDER. NO S/S INFILTRATION NOTED. BED LOW AND LOCKED. SIDE RAILS UP X3. CALL LIGHT WITHIN REACH. WILL ENDORSE TO COORDINATE MEASURING EQUIPMENT OPERATOR.
[2019-05-24] MEDS: IV NS 0.9% 1,000 ML IV PRN (19:50)
[2019-05-24 20:00] VITALS: BP 146/72
[2019-05-25] VITALS: BP 136/72
[2019-05-25] MEDS: PIPERACILLIN /TAZOBACTAM 3.375 G in IV D5W 100 ML IV SCH ×2 (00:26→08:56)
[2019-05-25] MEDS: LORAZEPAM INJ 2 MG/ML VIAL IV PRN ×5 (03:34→23:44)
--- NOTE | 2019-05-25 07:07 | NUR ---
MS/RN EXIT NOTES PATIENT IN NO ACUTE DISTRESS, BREATHING EVEN AND UNLABORED, NO SOB NOTED. DENIES ANY PAIN AT THIS TIME, ALL DUE MEDS GIVEN ORDERED. SAFETY MAINTAINED, BED A THE LOWEST LOCKED POSITION. WILL ENDORSE TO AM SHIFT NURSE FOR TANA.
[2019-05-25 08:00] VITALS: BP 132/81
[2019-05-25] MEDS: NYSTATIN (PYXIS) 500,000 UNIT/5 ML ORAL.SUSP PO SCH ×4 (08:56→22:00)
--- NOTE | 2019-05-25 14:10 | NUR ---
alert, oriented, very anxious, insists going AMA, " not stable enough to go anywhere". IVF increased to 200cc per hour at this time. refused to eat breakfast, lunch, asking for ice cream, when offered , " didnt want to eat" whole family around. Yelling at times, " want to get out of here", ATIVAN 1mg ivp given per attending.
[2019-05-25] MEDS: IV NS 0.9% 1,000 ML IV SCH ×2 (15:30→20:49)
--- NOTE | 2019-05-25 15:42 | NUR ---
wide awake, agitated, wants to go now. No family around, very unsteady on feet, ATIVAN 1mg ivp given right now.
[2019-05-25 16:00] VITALS: BP 141/79
[2019-05-25 16:09] VITALS: BP 141/79
--- NOTE | 2019-05-25 18:22 | NUR ---
patient out of bed being assisted by two brothers to restroom,patient still unsteady on gait.explained to family safety issues,patient upset wants to home against medical advice.DR. FORD MADE AWARE OF SITUATION AND GAVE ORDERS.PATIENT NOT MEDICALLY CLEAR PER DR. RODRIGUEZ.EXPLAINED TO FAMILY.WILL CONTINUE TO MONITOR.
--- NOTE | 2019-05-25 18:27 | NUR ---
PATIENT REFUSING IVF,EXPLAINED THE BENEFITS OF IVF PATIENT STILL REFUSED ,DR. RODRIGUEZ MADE AWARE.
--- NOTE | 2019-05-25 19:30 | NUR ---
MS RN OPENING NOTES, RECEIVED PT IN BED SLEEPING.ON 4L O2,TOLERATING WELL. NO SOB AND ACUTE DISTRESS NOTED. IV RIGHT HAND IS IN PLACE, NS 200ML/HR, NO INFILTRATION NOTED. PT IS CLEAN AND DRY. WILL CONTINUE TO MONITOR.
[2019-05-26] MEDS ORDERED: OLANZAPINE 10 MG VIAL IM ONE ×2 (01:45→02:00)
[2019-05-26 02:00] VITALS: BP 140/66
--- NOTE | 2019-05-26 02:00 | NUR ---
MS RN NOTES, PATIENT NOTED TRYING TO GET UP FROM THE BED X4 , HE HAS GENERALIZED WEAKNESS AND FALL RISK, EXPLAINED THE RISK AND BENEFITS X3 BUT STILL TRYING TO DO THE SAME, APPLIED THE BILATERAL SOFT WRIST RESTRAINT PER ELECTROPHYSIOLOGIST LEON ORDER, MONITORING THE SKIN, ITS INTACT, CONTINUE TO MONITOR THE PATIENT BEHAVIOR AND SKIN STATUS.
[2019-05-26] MEDS: LORAZEPAM INJ 2 MG/ML VIAL IV PRN ×3 (02:48→16:25)
[2019-05-26] MEDS: IV NS 0.9% 1,000 ML IV SCH ×4 (02:51→18:16)
[2019-05-26 07:07] LABS: BASOPHILS % (AUTO) 0.4 % (0.0-2.0); EOSINOPHILS % (AUTO) 1.5 % (0.0-6.0); HEMATOCRIT 29 % (39-51); HEMOGLOBIN 9.6 g/dL (13.5-17.5); LYMPHOCYTES # (AUTO) 2.2 /CMM (0.8-4.8); LYMPHOCYTES % (AUTO) 19.7 % (20.0-44.0); MEAN CORPUSCULAR HGB CONC 33 g/dl (31.0-36.0); MEAN CORPUSCULAR VOLUME 82 fL (80-96); MONOCYTES # (AUTO) 0.9 /CMM (0.1-1.30); MONOCYTES % (AUTO) 8.4 % (2.0-12.0); NEUTROPHILS # (AUTO) 7.9 /CMM (1.8-8.9); PLATELET COUNT (AUTO) 263 /CMM (150-450); RED BLOOD CELL COUNT(AUTO) 3.49 MIL/uL (4.5-6.0); WHITE BLOOD COUNT (AUTO) 11.3 K/uL (4.3-11.0)
[2019-05-26 07:25] LABS: ALBUMIN 2.6 g/dL (3.4-5.0); BILIRUBIN,DIRECT 0.1 mg/dL (0.0-0.2); BILIRUBIN,TOTAL 0.5 mg/dL (0.2-1.0); CALCIUM, SERUM 8.3 mg/dL (8.5-10.1); CREATININE 0.9 mg/dL (0.6-1.3); POTASSIUM 2.9 mmol/L (3.5-5.1); TOTAL PROTEIN, SERUM 5.7 g/dL (6.4-8.2)
--- NOTE | 2019-05-26 07:45 | NUR ---
MS RN OPENING NOTES, PT IN BED SLEEPING. ON 4L O2,TOLERATING WELL. NO SOB AND ACUTE DISTRESS NOTED AT THIS TIME. IV LEFT HAND IS IN PLACE, NS 200ML/HR, NO INFILTRATION NOTED. PATIENT HAS BILATERAL SOFT RESTRAIN ON. PATIENT IS CLEAN AND DRY. WILL ENDORSE TO AM NURSE FOR TANA.
--- NOTE | 2019-05-26 08:00 | NUR ---
rn note pt in bed sleeping, on room air, family at bedside on quality assurance monitor chassis sr [id number], per night nurse pt was up all night talking. calming meds given. call light within reach, wrist restraints are off. will monitor pt closely.
[2019-05-26] MEDS: NYSTATIN (PYXIS) 500,000 UNIT/5 ML ORAL.SUSP PO SCH ×3 (09:00→17:00)
[2019-05-26 11:00] VITALS: BP 136/72
[2019-05-26] MEDS: POTASSIUM CHLORIDE 20 MEQ POWDER PACKET PO SCH ×3 (11:00→12:00)
[2019-05-26] MEDS ORDERED: POTASSIUM CHLORIDE 10 MEQ/50 ML PREMIXED IVPB FOR PERIPHERAL LINE IV SCH (12:00)
--- NOTE | 2019-05-26 12:07 | NUR ---
rn note pt had only half of firts dose KCLOR, AND THEN SAID "NO MORE". WILL SWITCH TO 50 MEQ OF IV KCL PER DR RODRIGUEZ ORDER.
[2019-05-26] MEDS: POTASSIUM CL. PREMIX PERIPHER. 50 ML IV SCH ×5 (12:45→17:10)
[2019-05-26 16:00] VITALS: BP 130/70
--- NOTE | 2019-05-26 17:20 | NUR ---
RN NOTE PT REFUSES AL PO MEDS, GETS AGITATED WITH FAMILY, ESPECIALLY WHEN THEY GET INVOLVED IN ARGUMENT. PT REQUESTED TO WALK TO THE BATHROOM, AND ASSISTED WITH NURSE AND FAMILY TO BATHROOM AND BACK TO BED. PT DOES NOT FOLLOW SAFETY PRECAUTIONS, BED ALARM ON, WRIST RESTRAINTS ARE ON, BED IN LOCKED AND IN LOW POSITION. PER FAMILY NO PSYCH CONSULT NEEDED NOR PSYCH MEDS.
--- NOTE | 2019-05-26 20:01 | NUR ---
MS-1/PICKLING TANK OPERATOR RECEIVED PT AWAKE ALERT IN BED x3. ALERT TO NAME TIME AND CURRENT DISPOSITION. PT REQUESTING TO LEAVE AMA WITH , BROTHER AND UNCLE ASSUMING RESPONSIBILITY FOR PT. I DISCUSSED WITH PT AND PT FAMILY THE RISKS AND BENEFITS OF LEAVING AMA. PT STATED THAT HE UNDERSTOOD. PT SIGNED AMA FORM. PT IV WAS REMOVED WITH CATH TIP INTACT. AND WRIST BAND WAS REMOVED. PT AMBULATED TO THE RESTROOM AND URINATED WITHOUT COMPLICATION. I ASSISTED PT INTO A WHEELCHAIR AND HELPED HIM INTO HIS BROTHERS CAR. NURSING DAIRY PRODUCTS MAKER JACKLYN AND STEFANIE INSOLE AND OUTSOLE SPLITTER NOTIFIED. INCIDENT REPORT COMPLETE.
== END 2019-05-26 20:15 | disposition left against medical advice (07) | DRG 812 ==
LOC: ER 11:20 → ICU 14:21 → TELE1 05-23 10:35 → MEDSG1 05-23 11:35 → TELE1 05-26 03:23 → MEDSG1 05-26 08:26
PROVIDERS: ADMIT Nurse Practitioner Acute Care; ATTEND Family Medicine
PROC: 0BH17EZ Insertion of Endotracheal Airway into Trachea, Via Natural or Artificial Opening (ICD-10-PCS; principal; 2019-05-17)
PROC: 009U3ZX Drainage of Spinal Canal, Percutaneous Approach, Diagnostic (ICD-10-PCS; 2019-05-17)
PROC: 5A1955Z Respiratory Ventilation, Greater than 96 Consecutive Hours (ICD-10-PCS; 2019-05-17)
DX: T40.7X1A Poisoning by cannabis (derivatives), accidental (unintentional), initial encounter (principal); N17.0 Acute kidney failure with tubular necrosis; J96.00 Acute respiratory failure, unspecified whether with hypoxia or hypercapnia; R40.2122 Coma scale, eyes open, to pain, at arrival to emergency department; R40.2212 Coma scale, best verbal response, none, at arrival to emergency department; A41.9 Sepsis, unspecified organism; G92 Toxic encephalopathy; R56.9 Unspecified convulsions; I95.9 Hypotension, unspecified; E87.0 Hyperosmolality and hypernatremia; E87.2 Acidosis; E83.42 Hypomagnesemia; M62.82 Rhabdomyolysis; G89.29 Other chronic pain; F12.90 Cannabis use, unspecified, uncomplicated; T42.4X1A Poisoning by benzodiazepines, accidental (unintentional), initial encounter; E87.6 Hypokalemia; R40.2362 Coma scale, best motor response, obeys commands, at arrival to emergency department; F39 Unspecified mood [affective] disorder; F05 Delirium due to known physiological condition; Y92.009 Unspecified place in unspecified non-institutional (private) residence as the place of occurrence of the external cause; J98.11 Atelectasis
CPT/HCPCS: 31720; 36415; 36600; 70450-TC; 71045-TC; 76700-TC; 80048-TC; 80053-TC; 80061-TC; 80076-TC; 80305; 81000-TC; 82550-TC; 82570-TC; 82803-TC; 83605-TC; 83735-TC; 83935-TC; 83970; 84100-TC; 84155; 84155-TC; 84165; 84300-TC; 84484-TC; 85025-TC; 85730-TC; 87040-TC; 87070-TC; 87081-TC; 87806; 89051-TC; 92521; 92526; 94002-TC; 94003-TC; 94640-TC; 94799-TC; 95819-TC; 97110-TC; 97116-TC; 97530-TC; 99082-TC; G0378; G0480; J0330; J0360; J0696; J2060; J2310; J2405; J2543; J3475; J3480; J3490; J7030; J7060

== ENCOUNTER 2019-12-08 17:34 | Emergency (ER) | payer OTHER ==
[~2019-12-08] VITALS: Ht 172.7 cm; Wt 122.5 kg
--- NOTE | 2019-12-08 17:50 | NUR ---
[id number], PASSED OUT AFTER ETOH USE. FRIENDS CALLED 911., PT TO BED 13, AROUSABLE, -SOB, NAD NOTED, VSS, PENDING MD ROMERO
[2019-12-08] MEDS ORDERED: ONDANSETRON HCL/PF 4 MG/2 ML VIAL ONE (18:09)
[2019-12-08 18:15] LABS: BASOPHILS # (AUTO) 0.1 /CMM (0.0-0.2); BASOPHILS % (AUTO) 0.6 % (0.0-2.0); EOSINOPHILS % (AUTO) 2.7 % (0.0-6.0); HEMATOCRIT 44 % (39-51); HEMOGLOBIN 14.5 g/dL (13.5-17.5); LYMPHOCYTES # (AUTO) 2.5 /CMM (0.8-4.8); LYMPHOCYTES % (AUTO) 25.9 % (20.0-44.0); MEAN CORPUSCULAR HGB CONC 33 g/dl (31.0-36.0); MEAN CORPUSCULAR VOLUME 80 fL (80-96); MONOCYTES # (AUTO) 0.5 /CMM (0.1-1.30); MONOCYTES % (AUTO) 4.9 % (2.0-12.0); NEUTROPHILS # (AUTO) 6.4 /CMM (1.8-8.9); NEUTROPHILS % (AUTO) 65.9 % (43.0-81.0); PLATELET COUNT (AUTO) 239 /CMM (150-450); WHITE BLOOD COUNT (AUTO) 9.7 K/uL (4.3-11.0)
[2019-12-08] MEDS ORDERED: ONDANSETRON HCL/PF 4 MG/2 ML VIAL IVP ONE (18:30)
[2019-12-08] MEDS ORDERED: IV NS 0.9% 1,000 ML BAG IV ONE (18:30)
[2019-12-08 18:34] LABS: ALANINE AMINOTRANSFERASE 35 U/L (12-78); ALCOHOL, BLOOD 196 mg/dL (0-0); ALKALINE PHOSPHATASE 63 U/L (46-116); ASPARTATE AMINOTRANSFERASE 30 U/L (15-37); BILIRUBIN,TOTAL 0.3 mg/dL (0.2-1.0); CALCIUM, SERUM 8.8 mg/dL (8.5-10.1); CARBON DIOXIDE 24 mmol/L (21-32); CHLORIDE 107 mmol/L (98-107); GLUCOSE 141 mg/dL (74-106); POTASSIUM 4.1 mmol/L (3.5-5.1); SODIUM SERUM 144 mmol/L (136-145); TOTAL PROTEIN, SERUM 7.4 g/dL (6.4-8.2); UREA NITROGEN, BLOOD 18 mg/dL (7-18)
[2019-12-08 18:41] LABS: ACETAMINOPHEN 0 ug/ml (10-30); SALICYLATE 1.1 mg/dL (2.8-20.0)
[2019-12-08] MEDS ORDERED: FAMOTIDINE/PF INJ 20 MG/2 ML VIAL IV ONE ×2 (18:52→19:00)
[2019-12-08 18:55] LABS: SERUM AMMONIA 24 umol/L (11-32)
[2019-12-08 19:08] LABS: THYROID STIMULATING HORMONE 1.215 uIU/mL (0.358-3.74)
[2019-12-08 21:00] VITALS: BP 127/75
--- NOTE | 2019-12-08 21:05 | NUR ---
Patient discharged to home in stable condition. Written and verbal after care instructions given. Patient verbalizes understanding of instruction. IV removed. Catheter intact and site benign. Pressure and 4x4 applied to site. No bleeding noted.
== END 2019-12-08 21:05 | disposition home or self-care (01) ==
LOC: ER 17:37
DX: F10.20 Alcohol dependence, uncomplicated (principal); R11.10 Vomiting, unspecified; Y90.6 Blood alcohol level of 120-199 mg/100 ml; Z86.73 Personal history of transient ischemic attack (TIA), and cerebral infarction without residual deficits; Z88.5 Allergy status to narcotic agent
CPT/HCPCS: 36415; 80048; 80076; 80307; 80329; 82140; 84443; 84484; 85025; 85730; 93005; 96361; 96374; 96375; 99284; G0480; J2405; J3490

== ENCOUNTER 2020-03-26 05:54 | Emergency (ER) | payer OTHER ==
[~2020-03-26] VITALS: Ht 182.9 cm; Wt 108.9 kg
--- NOTE | 2020-03-26 06:05 | NUR ---
PT BIB [id number] WITH A C/O WITNESSED SEIZURE. NO ORAL TRAUMA NOTED. PT IS AA&O X3. PT IS SOMEWHAT COMBATIVE/AGGRESSIVE TOWARDS RESCUE AND STAFF. PT WAS PLACED ON THE MONITOR AND CONTINUOUS PULSE OX. PT IS C/O RT SHOULDER PAIN. SR UP X2. SEIZURE PRECAUTIONS IMPLEMENTED.
--- NOTE | 2020-03-26 06:18 | NUR ---
DR VEGA IS AT THE BEDSIDE EVALUATING THE PT.
[2020-03-26] MEDS ORDERED: LEVETIRACETAM (500MG) 500 MG in IV NS 0.9% 100 ML IV ONE (06:30)
[2020-03-26] MEDS ORDERED: IV NS 0.9% 1,000 ML BAG IV ONE (06:30)
[2020-03-26] MEDS ORDERED: LEVETIRACETAM (500MG) 500 MG/5 ML VIAL IV ONE (06:35)
[2020-03-26 07:02] LABS: BASOPHILS # (AUTO) 0.1 /CMM (0.0-0.2); BASOPHILS % (AUTO) 0.7 % (0.0-2.0); EOSINOPHILS % (AUTO) 2.4 % (0.0-6.0); HEMATOCRIT 48 % (39-51); HEMOGLOBIN 15.4 g/dL (13.5-17.5); LYMPHOCYTES # (AUTO) 3.1 /CMM (0.8-4.8); LYMPHOCYTES % (AUTO) 27.8 % (20.0-44.0); MEAN CORPUSCULAR HGB CONC 32 g/dl (31.0-36.0); MEAN CORPUSCULAR VOLUME 80 fL (80-96); MONOCYTES # (AUTO) 0.6 /CMM (0.1-1.30); MONOCYTES % (AUTO) 5.5 % (2.0-12.0); NEUTROPHILS # (AUTO) 7.2 /CMM (1.8-8.9); NEUTROPHILS % (AUTO) 63.6 % (43.0-81.0); PLATELET COUNT (AUTO) 278 /CMM (150-450); RED BLOOD CELL COUNT(AUTO) 5.92 MIL/uL (4.5-6.0); WHITE BLOOD COUNT (AUTO) 11.3 K/uL (4.3-11.0)
[2020-03-26 07:07] LABS: CALCIUM, SERUM 9.2 mg/dL (8.5-10.1); CREATININE 1.7 mg/dL (0.6-1.3); POTASSIUM 4.5 mmol/L (3.5-5.1)
--- NOTE | 2020-03-26 07:08 | NUR ---
REPORT GIVEN TO LES VOGEL FOR TANA.
[2020-03-26 07:13] LABS: ALBUMIN 3.9 g/dL (3.4-5.0); BILIRUBIN,DIRECT 0.1 mg/dL (0.0-0.2); BILIRUBIN,TOTAL 0.3 mg/dL (0.2-1.0); TOTAL PROTEIN, SERUM 7.5 g/dL (6.4-8.2)
[2020-03-26] MEDS ORDERED: IV NS 0.9% 1,000 ML IV ONE (07:30)
[2020-03-26] MEDS ORDERED: FENTANYL PF 100MCG/2ML AMPUL ONE (08:44)
[2020-03-26] MEDS ORDERED: FENTANYL PF 100MCG/2ML AMPUL IV ONE (09:00)
--- NOTE | 2020-03-26 09:32 | NUR ---
IV removed. Catheter intact and site benign. Pressure and 4x4 applied to site. No bleeding noted.Patient discharged to home in stable condition. Picked up by brother in waiting room. Written and verbal after care instructions given. Patient verbalizes understanding of instruction.
[2020-03-26 09:33] VITALS: BP 102/52
== END 2020-03-26 09:34 | disposition home or self-care (01) ==
LOC: ER 05:55
DX: S42.291A Other displaced fracture of upper end of right humerus, initial encounter for closed fracture (principal); R56.9 Unspecified convulsions; E86.0 Dehydration; F17.200 Nicotine dependence, unspecified, uncomplicated; Z88.8 Allergy status to other drugs, medicaments and biological substances; Z86.73 Personal history of transient ischemic attack (TIA), and cerebral infarction without residual deficits; W19.XXXA Unspecified fall, initial encounter; Y93.89 Activity, other specified; Y92.89 Other specified places as the place of occurrence of the external cause; Y99.8 Other external cause status
CPT/HCPCS: 36415; 73030; 80048; 80076; 85025; 96361; 96365; 96375; 99284; J1953 ×2; J3010; J7030 ×4